=== PATIENT | male | born 1970 | race African-American/Black ===

== ENCOUNTER 2016-11-11 20:34 | Emergency (ER) | payer OTHER ==
--- NOTE | 2016-11-12 00:47 | PROVIDER DOCUMENTATION ---
HPI-Musculoskeletal Pain/Inj - GENERAL Chief Complaint: Extremity Injury Stated Complaint: RT ARM PAIN Time Seen by Provider: 11/12/16 00:42 Source: patient - HX OF PRESENT ILLNESS-MUSKULOSKELTAL Nature of Presenting Problem: 46 Y/O M presents to ED with extremity pain.Pt states he has a hx of gout and believes his right wrist pain is due to that.Pt states that it began 5 days ago. Pt states a family of gout. C/o of tenderness, limited ROM, and swelling in right wrist. Quality of Pain: reports: aching, sharp Severity in ED: moderate Onset/Duration: 6 days ago Timing: still present Any recent injury?: No Locality of Occurance: Home Similar Symptoms Previously?: No Recently seen or treated by another doctor?: No - UPPER EXTREMITY PAIN/INJURY Extremities Pain Location: wrist: right, hand: right, thumb: right, 2nd finger: right, 3rd finger: right, 4th finger: right, 5th finger: right Context / Method of Injury: reports: unknown Associated Symptoms: reports: numbness in upper ext, tingling in upper ext Review of Systems - Adult - REVIEW OF SYSTEMS - ADULT Constitutional: denies: chills, fever Eyes: reports: no symptoms reported Ears, Nose, Mouth & Throat: reports: no symptoms reported Cardiovascular: reports: no symptoms reported Respiratory: reports: no symptoms reported Gastrointestinal: reports: no symptoms reported Genitourinary: reports: no symptoms reported Musculoskeletal: reports: joint pain, joint swelling, muscle aches Integumentary: reports: no symptoms reported Neurological: reports: no symptoms reported Psychiatric: reports: no symptoms reported Endocrine: reports: no symptoms reported Hematologic/Lymphatic: reports: no symptoms reported Allergic/Immunologic: reports: no symptoms reported All Other Systems: Reviewed and Negative Past History - Adult - PAST MEDICAL HISTORY-ADULT Review of Records: reports: Old Records Reviewed, Nursing Assessment Review, Medications Reviewed, Social history reviewed & non-contributory. Major Childhood Illnesses: reports: denies history Cardiovascular: reports: denies history Respiratory: reports: denies history Gastrointestinal: reports: denies history Obstetrical/Gynecological: reports: denies history Genitourinary: reports: denies history Musculoskeletal: reports: denies history, other (gout) Neurological: reports: denies history Endocrine/Immune: reports: denies history Other Conditions: reports: denies history - IMMUNIZATION STATUS Childhood Immunizations: See Nurse Assessment Flu Vaccine: See Nurse Assessment - FAMILY HISTORY Family History: reviewed, not pertinent - SOCIAL HISTORY Smoking: cigarettes, less than 1 pack/day Substance Use: none/never Alcohol Use Frequency: never Living Situation: family Physical Exam-Injury Related - Physical Exam-Injury Related Initial Vital Signs Reviewed: Yes General Appearance: appears well, alert, mild distress Eyes: PERRL/EOMI, pink conjunctivae, fundi clear, no AV nicking Head, Ears, Nose, Mouth & Throat: normocephalic/atraumatic, moist mucous membranes, normal ENT inspection, TMs normal, pharynx normal Neck: non-tender, full range of motion, supple, normal inspection Respiratory: chest non-tender, lungs clear, normal breath sounds Cardiovascular: normal peripheral pulses, regular rate, rhythm Abdominal Exam: normal bowel sounds, non tender, soft Lymphatic: no adenopathy Back Exam: normal inspection, no CVA tenderness, no vertebral tenderness Extremity: swelling (right hand swelling limited ROM), tenderness. negative: normal range of motion Integumentary: normal color, warm/dry Neurologic: infection control manager II-XII nml as tested, grossly normal, no motor/sensory deficits Psych/Mental Status: normal mood/affect, normal thought content, normal thought process, oriented x 3 - Glascow Coma Score Best Eye Response ([place]): (4) open spontaneously Best Verbal Response ([place]): (5) oriented Best Motor Response ([place]): (6) obeys commands Elissa Total: 15 Progress - PLAN OF CARE/RESULTS Progress/Plan/Lab Results: Laboratory Tests 11/12/16 11/12/16 01:06 01:06 WBC 6.77 RBC 4.84 Hgb 13.9 L Hct 41.1 L MCV 84.9 MCH 28.7 MCHC 33.8 RDW Std Deviation 14.0 Plt Count 249 MPV 11.1 H Immature Gran % (Auto) 0.0 Neut % (Auto) 42.5 Lymph % (Auto) 45.9 Coffey % (Auto) 6.9 Eos % (Auto) 4.4 Baso % (Auto) 0.3 Immature Gran # (Auto) 0.00 Neut # (Auto) 2.87 Lymph # (Auto) 3.11 Coffey # (Auto) 0.47 Eos # (Auto) 0.30 Baso # (Auto) 0.02 Sodium 139 Potassium 3.6 Chloride 100 Carbon Dioxide 24 L Anion Gap 15 BUN 12 Creatinine 1.0 Estimated GFR/1.73 m2 > 60 BUN/Creatinine Ratio 12 Glucose 139 H Calculated Osmolality 280 Uric Acid 12.3 H Calcium 9.0 Orders Category Date Time Status BMP [BASIC METABOLIC PANEL] [CHEM] Stat Lab 11/12/16 01:06 Completed CBC WITH ELECTRONIC DIFF [HEME] Stat Lab 11/12/16 01:06 Completed URIC ACID [CHEM] Stat Lab 11/12/16 01:06 Completed Colchicine [Colcrys] Med 11/12/16 00:54 Discontinued 0.6 mg PO NOW ONE Hydromorphone [Dilaudid] Med 11/12/16 00:54 Discontinued 1 mg IM NOW ONE Indomethacin [Indocin] Med 11/12/16 00:53 Discontinued 50 mg PO NOW ONE Vital Signs - 24 hr 11/11/16 11/12/16 20:54 00:54 Temperature 98.9 F Pulse Rate 80 75 Respiratory 16 18 Rate Blood Pressure 144/81 149/89 O2 Sat by Pulse 98 98 Oximetry Departure - Departure Time of Disposition Order: 02:27 DIAGNOSIS: Gout Qualifiers: Gout site: wrist Gout etiology: unspecified cause Laterality: right Chronicity : unspecified Qualified Code(s): M10.9 - Gout, unspecified Disposition: HOME 01 Certified Medical Emergency: Emergent Condition: Stable Additional Instructions: ED Follow Up Instructions: You have been treated by a care provider in the Emergency Department. These instructions are being provided to you so you can have an understanding of how to care for yourself upon discharge. Upon discharge from the Emergency Department, you are responsible for making arrangements for follow-up care by a physician of your choice. Take all prescribed medications as directed. Return to the Emergency Department immediately for any new or worsening symptoms. You may call the Physician Referral phone number at [phone] to obtain a list of Physicians who are taking new patients. Attestation - Scribe Verification/Attestation Scribe:: Anais Wilson Acting as Scribe for:: Ziyad Cabrales Scribe documention review:: This chart was documented by a scribe and accurately reflects the service the provider performed and the decisions made by the provider.
[2016-11-12] MEDS ORDERED: INDOCIN PO ONE (00:53)
[2016-11-12] MEDS ORDERED: DILAUDID IM ONE (00:54)
[2016-11-12] MEDS ORDERED: COLCRYS PO ONE (00:54)
[2016-11-12 01:20] LABS: MANUAL DIFF NEEDED? NO
[2016-11-12 01:22] LABS: BASO% 0.3 % (0.0-0.8); EOS% 4.4 % (0.0-10.0); HEMATOCRIT 41.1 % (42.0-52.0); HEMOGLOBIN 13.9 g/dL (14.0-18.0); LYMPH# 3.11 X1000 (1.2-3.4); LYMPH% 45.9 % (20.5-51.1); MCH 28.7 PG (27-31); MCHC 33.8 g/dL (33-37); MCV 84.9 FL (81-99); MONO# 0.47 X1000 (0.11-0.59); MONO% 6.9 % (1.7-9.3); MPV 11.1 FL (7.4-10.4); NEUT% 42.5 % (42.2-75.2); PLT 249 X1000 (130-400); RBC 4.84 XMIL (4.7-6.1)
[2016-11-12 01:48] LABS: AGAP 15; BUN 12 mg/dL (8-22); CHLORIDE 100 mmol/L (98-107); COSMO 280; POTASSIUM 3.6 mmol/L (3.5-5.1); SODIUM 139 mmol/L (136-145); TCO2 24 mmol/L (25-35); URIC ACID 12.3 mg/dL (3.4-7.0)
[2016-11-12 02:47] VITALS: BP 155/100
== END 2016-11-12 02:46 | disposition home or self-care (01) ==
LOC: ED 20:34
DX: M10.9 Gout, unspecified (principal); M25.531 Pain in right wrist; M25.431 Effusion, right wrist; R20.0 Anesthesia of skin; R20.2 Paresthesia of skin; M79.1 Myalgia; F17.210 Nicotine dependence, cigarettes, uncomplicated; Z79.899 Other long term (current) drug therapy
CPT/HCPCS: 80048; 84550; 85025; J1170